=== PATIENT | male | born 1970 | race Two or more races ===

== ENCOUNTER 2016-09-19 13:10 | Emergency (ER) | payer MEDICAID ==
[~2016-09-19] VITALS: Ht 165.1 cm; Wt 68.0 kg
--- NOTE | 2016-09-19 13:38 | NUR ---
PT IS IN ROOM #2A. DR DORMAN EVALUATED THE PT.
[2016-09-19] MEDS ORDERED: IV NS 1000 ML 1,000 ML IV ONE (13:45)
[2016-09-19 13:56] LABS: BASOPHILS # (AUTO) 0.1 K/uL (0.0-0.2); BASOPHILS % (AUTO) 1.6 % (0.0-2.0); EOSINOPHILS # (AUTO) 0.3 K/uL (0.0-0.7); EOSINOPHILS % (AUTO) 2.9 % (0.0-7.0); HEMOGLOBIN 15.5 g/dL (14.0-18.0); LYMPHOCYTES % (AUTO) 34.7 % (20.5-51.5); MEAN CORPUSCULAR HEMOGLOBIN 28.8 uug (27.0-31.0); MEAN CORPUSCULAR HGB CONC 33 g/dL (32.0-37.0); MEAN CORPUSCULAR VOLUME 87.2 fL (82.0-92.0); MONOCYTES # (AUTO) 0.4 K/uL (0.1-1.30); MONOCYTES % (AUTO) 5.1 % (0.0-11.0); NEUTROPHILS # (AUTO) 4.9 K/uL (1.8-8.9); NEUTROPHILS % (AUTO) 55.7 % (38.5-71.5); PLATELET COUNT (AUTO) 234 K/uL (150-450); RED BLOOD CELL COUNT(AUTO) 5.39 MIL/uL (4.70-6.10); WHITE BLOOD COUNT (AUTO) 8.7 K/uL (4.0-11.2)
[2016-09-19 14:04] LABS: CARBON DIOXIDE 31 mmol/L (21-32); CHLORIDE 102 mmol/L (98-107); CREATININE 1.1 mg/dL (0.6-1.3); GLUCOSE 102 mg/dL (74-106); POTASSIUM 3.4 mmol/L (3.5-5.1); UREA NITROGEN, BLOOD 10 mg/dL (7-18)
[2016-09-19 14:09] LABS: ALANINE AMINOTRANSFERASE 26 U/L (16-63); ALKALINE PHOSPHATASE 65 U/L (50-136); ASPARTATE AMINOTRANSFERASE 15 U/L (15-37); BILIRUBIN,TOTAL 0.3 mg/dL (0.2-1.0); TOTAL PROTEIN, SERUM 7.7 g/dL (6.4-8.2)
[2016-09-19 14:11] LABS: ETHANOL < 3 MG/DL (0-0)
[2016-09-19 14:12] LABS: *AMPHETAMINE, URINE POSITIVE (NEGATIVE); *BARBITURATE, URINE NEGATIVE (NEGATIVE); *CANNABINOID, URINE NEGATIVE (NEGATIVE); *COCCAINE, URINE NEGATIVE (NEGATIVE); *OPIATE, URINE POSITIVE (NEGATIVE); *PHENCYCLIDINE SCREEN,URINE NEGATIVE (NEGATIVE)
[2016-09-19 14:27] LABS: ACETAMINOPHEN < 2.0 ug/mL (10-30)
--- NOTE | 2016-09-19 14:47 | NUR ---
PT REFUSED FURTHER ED TREATMENT. PT LEFT FROM ED DEPARTMENT AGAINST DR DORMAN MEDICAL ADVICE.
[2016-09-19 14:50] VITALS: BP 136/79
== END 2016-09-19 14:51 | disposition left against medical advice (07) ==
LOC: ER 13:10
DX: F11.10 Opioid abuse, uncomplicated (principal)
CPT/HCPCS: 36415; 80307; 85025; A4663; G0480-TC; G6040-TC; J7030